=== PATIENT | female | born 1990 | race Caucasian/White ===

== ENCOUNTER 2020-06-25 01:16 | Outpatient (CLI) | payer SELFPAY ==
[2020-06-25 20:08] LABS: SARS-CoV-2 RNA PCR Negative
== END 2020-06-25 01:17 | disposition home or self-care (01) ==
LOC: ANHCOVIDDT 01:18
PROVIDERS: PCP Family Medicine; Visit Provider Surgery Plastic and Reconstructive Surgery
DX: Z01.812 Encounter for preprocedural laboratory examination (principal); Z20.822 Contact with and (suspected) exposure to COVID-19
CPT/HCPCS: C9803; U0003

== ENCOUNTER 2020-06-28 01:52 | Day surgery (SDC) | payer OTHER, SELFPAY ==
[2020-06-20 12:28] VITALS: BMI 28.1
[2020-06-28] VITALS (9 sets, daily range): BP systolic 107–137; BP diastolic 64–98; PULSE 64–114; RESP 13–21; TEMP 36–36.6; O2SAT 99–100; BMI 26.6
[2020-06-28] MEDS: LACTATED RINGERS 1,000 ML 30 ML IV CONT ×2 (11:37→14:38)
--- NOTE | 2020-06-28 13:06 | WPDHPUPDATE1 ---
History and Physical Update Update Date/Time: 06/28/20 13:06 History and Physical has been reviewed, including an updated exam of the patient. There are NO changes in the patient's condition. Risks, benefits, and alternatives have been discussed and questions answered. Patient agrees to proceed with procedure.
--- NOTE | 2020-06-28 13:20 | WPDANESEPPF ---
Anes - Initial Pre Proc Eval Procedure: Operation Date: 06/28/20 13:00 Proposed Procedures p Bilateral Breast Augmentation - Jacky Hull MD Date/Time: 06/28/20 13:20 Surgeon: Jacky Hull MD Pre Op Diagnosis: Micromastia Patient Data Age: 30 Gender: F Height: 5 ft 8 in Weight: 79.7 kg Last Vital Signs Temp 97.9 F 06/28/20 11:34 Pulse 77 06/28/20 11:34 Resp 16 06/28/20 11:34 BP 114/77 06/28/20 11:34 Pulse Ox 100 06/28/20 11:34 Allergies Allergy/AdvReac Type Severity Reaction Status Date / Time No Known Allergies Allergy Verified 06/28/20 11:17 Home Medications Medication Instructions Recorded Confirmed Type dextroamphetamine-amphetamine 20 20 mg PO DAILY 05/23/20 06/28/20 History mg tablet docusate sodium 100 mg capsule 100 mg PO DAILY #14 cap 06/13/20 06/28/20 Rx ondansetron HCl 4 mg tablet 4 mg PO Q8H #24 tablet 06/13/20 06/28/20 Rx carisoprodol 350 mg tablet 350 mg PO TID PRN #21 tablet 06/14/20 06/28/20 Rx oxycodone-acetaminophen 5 mg-325 1 tablet PO Q6H PRN #15 tablet 06/14/20 06/28/20 Rx mg tablet Patient hx anesthesia problems: none Family hx anesthesia problems: none [facility] Past Medical History Medical History (Updated 06/28/20 @ 13:20 by Avery Gee MD) ADHD (attention deficit hyperactivity disorder) Social History Social History Smoking status: Never smoker Alcohol intake: current Drinks per week: 4 Alcohol use details: weekends Substance use: never Substance use type: does not use Living arrangements: with family Spiritual care concerns: No Anes - Eval Final PreProcedure Day of Procedure 06/28/20 13:20 Patient weight: normal Heart: regular rate and rhythm Lungs: clear to auscultation Airway: Mallampati scale class II Neurological: alert and oriented Last oral intake: >/= 8 hours ASA classification: II Emergent: no Anesthetic plan: proceed Anesthesia type and monitoring: general LMA and standard monitoring Informed Consent: The patient's anesthetic plan and its attendant risks and benefits were discussed with the patient/family/POA. Questions were solicited and answers provided to the satisfaction of the patient/family/POA.
--- NOTE | 2020-06-28 13:27 | SUR.PREOP ---
1310; DR POWER MARKING PT. STAFF MEMBER IN ROOM
--- NOTE | 2020-06-28 13:29 | PM.PROC ---
Procedure Note - Detailed Date of procedure: 06/28/20 Pre-op diagnosis: Micromastia Post-op diagnosis: same Procedure performed: Bilateral Augmentation Mammaplasty Description of procedure: She is here today for bilateral breast augmentation. Previously and again today the risks, benefits, alternatives were discussed in extensive detail. I wanted her to be very realistic about the risks involved as well as expectations. We discussed aftercare and what to monitor for. Made sure answered all of her questions to her satisfaction today and consent was obtained. Marked in the preoperative holding area with their verification. The patient was taken to the operating room placed supine on the operating table. Anesthesia was provided by anesthesiology. A surgical time-out was taken. We cleansed the skin and 1% lidocaine and 0.25% Marcaine with epinephrine was used anesthetize as a field block. She was prepped and draped in a standard sterile fashion. Tegaderm nipple Santos were placed. A 15 blade used to make an incision along the inframammary fold. Dissection was continued at 45 degree angle until the chest wall as identified. Elevated above the pectoralis major in a dual plane fashion. I incised the pectoralis major along its inferior border and completely released the inferior border leaving the medial border intact. I created a subpectoral pocket in the appropriate dimensions based on our preoperative planning for the implant. I then copiously irrigated with saline solution and verified a strict hemostasis. Next the use a triple antibiotic and Betadine containing solution to irrigate the pocket. I washed my gloves with the triple antibiotic and Betadine solution. We washed the implant immediately upon opening it with this solution and only opened it when we needed it. I used implant funnel and no-touch technique. The implant was introduced into the pocket using the funnel. Having verified positioning of the implant this was closed using 2-0 Vicryl followed by 3-0 Monocryl in a running subcuticular 4-0 Monocryl followed by tissue glue. Fluffs, Beto wrap, and surgical bra were placed. Patient was awoke and taken to PACU without difficulty. All instrument sponge counts were correct at the end of the case. Anesthesia: GLMA Surgeon: Jacky Hull MD Estimated blood loss (mL): 5 Drains: No Packing: No Pathology: none sent Complications: No immediate complications Condition: stable Disposition: PACU Findings: Bilateral Natrelle Inspira SoftTouch Breast Implants 520cc Right: REF# [id number] Dual plane 2 Left: REF# [id number] Dual plane 3
[2020-06-28] MEDS: ceFAZolin 2 GM/D5W 50 ML 2 GM/50 ML BAG IVPB (13:35)
[2020-06-28] MEDS: LIDO 1%/EPINEPHRINE 1:100,000 50 ML VIAL 60 ML INFILTRATE (13:44)
--- NOTE | 2020-06-28 14:23 | SUR.OPER ---
bilateral breast implants [facility] Soft Touch Breast Implants right sn [id number], [id number], exp 2025-04-06. lefft sn [id number], lot [id number], exp 2024-06-05.
[2020-06-28] MEDS: fentaNYL CITRATE INJ (*CRX) 100 MCG/2 ML VIAL 25 MCG IV PUSH ×4 (14:53→15:12)
[2020-06-28] MEDS: HYDROmorphone HCL INJ (*CRX) 1 MG/ML SYR 0.5 MG IV PUSH ×2 (15:19→15:38)
[2020-06-28] MEDS: oxyCODONE HCL (*CRX) 5 MG TAB IR PO (16:06)
== END 2020-06-28 16:30 | disposition home or self-care (01) ==
PROVIDERS: PCP Family Medicine; Visit Provider Surgery Plastic and Reconstructive Surgery
PROC: (CPT 19325; principal; 2020-06-28 13:00)
DX: Z41.1 Encounter for cosmetic surgery (principal); N64.82 Hypoplasia of breast; F90.9 Attention-deficit hyperactivity disorder, unspecified type
CPT/HCPCS: 19325; A9270; J0690; J1100; J1170; J1580; J2250; J2405; J2704; J3010; J7120